=== PATIENT | female | born 1980 | race Caucasian/White ===

== ENCOUNTER 2025-01-14 21:37 | Emergency (ER) | payer OTHER, SELFPAY ==
[2025-01-14 21:51] VITALS: BP 144/90; PULSE 90; RESP 18; TEMP 36.8; O2SAT 99; BMI 29.9
--- NOTE | 2025-01-15 02:16 | ED_ITS ---
HPI - Wound/Laceration General Chief Complaint: Wound/Laceration Stated Complaint: Dog bite on face Time Seen by Provider: 01/15/25 02:01 Source: patient, RN notes reviewed and old records reviewed Mode of arrival: Ambulatory Limitations: no limitations History of Present Illness HPI narrative: 44-year-old female no reported medical issues complaint of dog bite to the face. Patient was getting ready for bed her dog jumped up which they often do while she was [place] to her significant other and bit her in the face. She states has not had issues in the past the dog was not acting aggressively otherw ise. Has otherwise been normal. She states tetanus is up-to-date. Dog's immunizations are up-to-date. She denies any other medical issues or injuries. Has some superficial lacerations but 1 larger lack adjacent to the lip. Denies any other injuries. Related Data Previous Rx's ?Medication ?Instructions ?Recorded amoxicillin 875 mg-potassium 1 tab PO BID #20 tabs 01/04 clavulanate 125 mg tablet Allergies Allergy/AdvReac Type Severity Reaction Status Date / Time No Known Drug Allergies Allergy Verified 01/14/25 21:51 Review of Systems Review of Systems ROS Unobtainable: All systems reviewed & are unremarkable except as noted in HPI and below Patient History Smoking Status: Never smoker Exam Narrative Exam Narrative: GEN: well nourished, well appearing female, alert and oriented x 3, patient appears to be in mild distress. HEENT: Atraumatic, pupils are equal round reactive to light, extraocular movements are intact, nares are clear, there is no conjunctival pallor. Throat is clear without any exudates, erythema, tonsillar enlargement or uvular deviation, patient has superficial laceration adjacent to the right side inferior to the nose, at the right upper lip extending to the vermilion border which gallops about a mm in his about 0.5 cm long follow the superficial portion extends upward little farther as well as a superficial laceration below the right lip. None are puncture wounds through and through. HEART: Regular rate and rhythm without murmur, clicks, rubs. No carotid bruits, pulses are equal in upper and lower extremities LUNGS:Lungs clear to auscultation, no wheezes, rales, crackles, chest moves symmetrically ABD:bowel sounds normal, soft, non-tender, no guarding, rebound, rigidity, no masses noted, no hepatosplenomegaly MSCL: full range of motion, normal gait NEURO:CN 2-12 intact, sensation normal Initial Vital Signs Initial Vital Signs: Vital Signs Temperature 98.2 F 01/14/25 21:51 Pulse Rate 90 01/14/25 21:51 Respiratory Rate 18 01/14/25 21:51 Blood Pressure 144/90 H 01/14/25 21:51 Pulse Oximetry 99 01/14/25 21:51 Oxygen Delivery Method Room Air 01/14/25 21:51 Procedures Laceration Repair Laceration 1: Site: lip Side (If applicable): right Size (cm): 0.5 Description: linear and clean Depth: simple, single layer Local Anesthetic: lidocaine 2% Amount of anesthesia used (mL): 1 Pre-repair: wound explored, irrigated extensively and deep structures intact Skin layer closed with: vicryl Skin layer suture size: 5-0 Number of sutures: 2 Technique: simple, interrupted Course Orders Ordered: Discontinued Medications Amoxicillin/Clavulanate Potassium (Amoxicillin/Clav 875/125 Mg) 1 tab PO NOW ONE Stop: 01/15/25 02:25 Last Admin: 01/15/25 02:39 Dose: 1 tab Vital Signs Vital signs: Vital Signs - 8 hr 01/14/25 21:51 01/15/25 02:48 Temperature 98.2 F Pulse Rate 90 78 Respiratory Rate 18 16 Blood Pressure 144/90 H 145/93 H Pulse Oximetry 99 98 Oxygen Delivery Method Room Air Room Air MDM - Wound/Laceration MDM Narrative Medical decision making narrative: 44-year-old female has several superficial lacerations but 1 is slightly more gapped rate to the edge of the vermilion border of the lip. The rest do not gape and do not require repair this 1 had 2 sutures placed for approximation Patient was tetanus is up-to-date. She states her dogs have all the rabies on other immunizations. Discharge Plan Departure Patient Disposition: Home Clinical Impression: Dog bite of face, Laceration of lip Instructions: DI for Laceration Repair Activity Restrictions/Additional Instructions: You have absorbable sutures they should absorb and not require to be removed. Take oral antibiotics until completed prescription sent to [facility] in [place]. Wound Care: Keep wound(s) clean and dry. Wash daily with soap and water only. As the area heals continue to use protective clothing to help prevent any scarring and pigment changes from the son, I after laceration has healed you can use Aquaphor or similar emollient as well as sunscreen to the area. Do not use over the counter products (alcohol or peroxide)on the wounds unless instructed by a physician. Do not use triple antibiotic ointment over the area of the sutures as it will break them down. If wound condition worsens (increased/expanding redness, developing fluid blisters, or worsening pain), either contact your doctor for an urgent re- assessment , or return to the Emergency Department. Return if fever greater than 100.4 Fahrenheit, increased swelling, increasing pain or worsening symptoms such as increased discharge or spreading redness. Prescriptions: New amoxicillin-pot clavulanate 875-125 mg tablet 1 tab PO BID Qty: 20 0RF Stand Alone Forms: Patient Portal/API
[2025-01-15] MEDS: AMOXICILLIN/CLAV 875/125 MG 1 TAB PO (02:39)
[2025-01-15 02:48] VITALS: BP 145/93; PULSE 78; RESP 16; O2SAT 98
== END 2025-01-15 02:49 | disposition home or self-care (01) ==
PROVIDERS: Emergency Provider Emergency Medicine
DX: S01.511A Laceration without foreign body of lip, initial encounter (principal); W54.0XXA Bitten by dog, initial encounter
CPT/HCPCS: 12011; 99283